=== PATIENT | male | born 1955 | race Two or more races ===

== ENCOUNTER 2019-08-27 18:59 | Emergency (ER) | payer OTHER ==
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
--- NOTE | 2019-08-27 19:33 | CT ---
Head CT Technique: Multiple axial sections through the brain were obtained. Intravenous contrast was not utilized. Comparison: No prior intracranial imaging is available. Findings: Ventricles along with basal cisterns and sulci over the convexities appear within normal limits for the patient's age. No abnormal parenchymal densities are seen. No evidence of intracranial hemorrhage. No midline shift or mass-effect is seen. Calcification is noted within the subcortical white matter within the right frontal region believed to be incidental. Soft tissue swelling appears to be present within a portion of the posterior left upper parietal scalp. Bone window settings were reviewed. No acute finding is seen within the visualized paranasal sinuses or mastoid sinuses. No acute calvarial finding is seen. Impression: 1. Mild soft tissue swelling within the upper left parietal scalp. 2. No acute intracranial abnormality is appreciated. Diagnostic code #2 This report was dictated in MDT
--- NOTE | 2019-08-27 19:33 | CT ---
CT cervical spine Technique: Multiple axial sections were obtained from above C1 inferiorly to the top of T3. Reconstructed sagittal and coronal images were reviewed. Comparison: No previous CT cervical spine study is available. Findings: Degenerative change is noted between the dens and anterior arch of C1. Severe disc space narrowing at C3-4, C5-6 and C6-7. Mild disc space narrowing is noted at C4-5 and C7-T1. Diffuse anterior endplate osteophytes are seen. Scattered degenerative apophyseal change is noted throughout the cervical spine. Vertebral bodies and posterior arches are intact. No fracture is appreciated. No abnormal subluxation is appreciated. Severe right-sided neural foraminal stenosis is noted at C3-4. Moderate right-sided neural foraminal stenosis noted at C4-5. Severe right-sided neural foraminal stenosis is noted at C5-6. Moderate right-sided neural foraminal stenosis noted at C6-7. Impression: 1. Diffuse degenerative change as described above. 2. Nothing acute is appreciated on CT study of the cervical spine. Diagnostic code #2 This report was dictated in MDT
[2019-08-27] MEDS ORDERED: Lidocaine 1% with EPINEPHrine 1:100,000 20 ML MDV INJECT ONE (19:42)
[2019-08-27] MEDS ORDERED: Bupivacaine 0.5% 10 ML SDV INJECT ONE (19:42)
== END 2019-08-27 21:26 | disposition home or self-care (01) ==
LOC: EDBD → JD.ED 18:59
DX: S06.0X9A Concussion with loss of consciousness of unspecified duration, initial encounter (principal); S01.01XA Laceration without foreign body of scalp, initial encounter; V59.9XXA Occupant (driver) (passenger) of pick-up truck or van injured in unspecified traffic accident, initial encounter
CPT/HCPCS: 12002; 70450; 72125; 99285; J3490; 99283

== ENCOUNTER 2019-09-06 13:35 | Emergency (ER) | payer SELFPAY | END 2019-09-06 13:56 | LOC: EDBD 13:35 → JD.ED 13:35 | DX: S01.01XD Laceration without foreign body of scalp, subsequent encounter (principal); X58.XXXD Exposure to other specified factors, subsequent encounter | CPT/HCPCS: 99281 ==